=== PATIENT | female | born 1985 | race Hispanic/Latino ===

== ENCOUNTER 2016-11-28 09:59 | Emergency (ER) | payer OTHER ==
[2016-11-28 10:09] VITALS: BP 103/71; PULSE 94; RESP 18; TEMP 98.4; O2SAT 100
--- NOTE | 2016-11-28 10:41 | ED PDOC ---
HPI: Skin/Bite Injury Time Seen by Provider: 11/28/16 10:24 Chief Complaint (Nursing): Abnormal Skin Integrity History Per: Patient Additional Complaint(s): Pt. states for the past week she's had a painful and pruritic rash localized to the back of her L leg. She has been applying Hydrocortisone cream and Calamine lotion without relief. Has also taken benadryl without relief. Further reports that she has been going through a lot of stress the past 1.5 months. Denies fever, recent illness, drainage. Past Medical History Reviewed: Historical Data, Nursing Documentation, Vital Signs Vital Signs: Last Vital Signs Temp 98.4 F 11/28/16 10:08 Pulse 94 H 11/28/16 10:08 Resp 18 11/28/16 10:08 BP 103/71 11/28/16 10:08 Pulse Ox 100 11/28/16 10:08 - Family History Family History: States: No Known Family Hx - Home Medications Home Medications: Ambulatory Orders Medication Instructions Recorded Acyclovir 5% [Zovirax 5% Oint] 1 applic EXT 5XD #1 tube 11/28/16 Acyclovir [Zovirax] 800 mg PO 5XD #35 tab 11/28/16 Hydroxyzine HCl 1 - 2 tab PO Q6 PRN #30 tablet 11/28/16 - Allergies Allergies/Adverse Reactions: Allergies Allergy/AdvReac Type Severity Reaction Status Date / Time No Known Allergies Allergy Verified 11/28/16 10:11 Review of Systems ROS Statement: Except As Marked, All Systems Reviewed And Found Negative Skin: Positive for: Rash Physical Exam - Physical Exam Appears: Positive for: Well, Non-toxic, No Acute Distress Skin: Positive for: Normal Color, Warm, Rash (Scattered vesicles some on erythematous base on entire posterior L leg without any crusting or pustules. ) - ECG O2 Sat by Pulse Oximetry: 100 Disposition - Clinical Impression Clinical Impression: Shingles - Patient ED Disposition Is Patient to be Admitted: No - Disposition Disposition: Routine/Home Disposition Time: 10:42 Condition: STABLE Additional Instructions: Follow up with your primary care physician in 2 days for further evaluation. STOP applying hydrocortisone on rash. Prescriptions: Acyclovir [Zovirax] 800 mg PO 5XD #35 tab Acyclovir 5% [Zovirax 5% Oint] 1 applic EXT 5XD #1 tube Hydroxyzine HCl 1 - 2 tab PO Q6 PRN #30 tablet PRN Reason: Itching / Pruritus Instructions: Gema (ED)
== END 2016-11-28 11:04 | disposition home or self-care (01) ==
LOC: H.ER 09:59
DX: B02.9 Zoster without complications (principal)

== ENCOUNTER 2017-05-04 08:41 | Emergency (ER) | payer BC, OTHER ==
[2017-05-04 08:48] VITALS: BP 98/57; PULSE 73; RESP 18; TEMP 97.8; O2SAT 100; BMI 20.8
--- NOTE | 2017-05-04 10:54 | ED PDOC ---
HPI: Wound Care - HPI Time Seen by Provider: 05/04/17 09:20 Chief Complaint (Nursing): Suture/Staple Removal History Per: Patient Additional Complaint(s): Pt. here for wound check and suture removal on L index finger. Pt. had suture placed on L 2nd digit 7 days ago at [facility] ED. She noticed today that there was some bleeding from the wound. Denies discharge, fever, numbness, tingling. Past Medical History Reviewed: Historical Data, Nursing Documentation, Vital Signs Vital Signs: Last Vital Signs Temp 97.8 F 05/04/17 08:47 Pulse 73 05/04/17 08:47 Resp 18 05/04/17 08:47 BP 98/57 L 05/04/17 08:47 Pulse Ox 100 05/04/17 08:47 - Medical History PMH: Depression - Family History Family History: States: No Known Family Hx - Immunization History Hx Tetanus Toxoid Vaccination: Yes Hx Influenza Vaccination: Yes Hx Pneumococcal Vaccination: No - Home Medications Home Medications: Ambulatory Orders Medication Instructions Recorded DULoxetine [Cymbalta] 60 mg PO DAILY 04/27/17 Methylphenidate HCl [Concerta] 54 mg PO DAILY 04/27/17 - Allergies Allergies/Adverse Reactions: Allergies Allergy/AdvReac Type Severity Reaction Status Date / Time No Known Allergies Allergy Verified 05/04/17 08:53 Review of Systems ROS Statement: Except As Marked, All Systems Reviewed And Found Negative Physical Exam - Physical Exam Appears: Positive for: Well, Non-toxic, No Acute Distress Skin: Positive for: Normal Color, Warm. Negative for: Rash Eye Exam: Positive for: Normal appearance Pulses-Radial (L): 2+ Extremity: Positive for: Other (L 2nd digit with [address] and steri- strip with small portion of wound still not completely approximated; no active bleeding) - ECG O2 Sat by Pulse Oximetry: 100 - Progress ED Course And Treament: Steri-strip removed by PA without difficulty. Wound irrigated and cleansed with NS. Suture kept in place. Pt. instructed to return to ED in 3 days for suture removal. Disposition - Clinical Impression Clinical Impression: Visit for wound check - Patient ED Disposition Is Patient to be Admitted: No - Disposition Disposition: Routine/Home Disposition Time: 10:45 Condition: STABLE Additional Instructions: Suture removal in 3 days Instructions: Care For Your Stitches (ED) Forms: [employer] (Kazakh) Print Language: WALLISIAN
== END 2017-05-04 11:00 | disposition home or self-care (01) ==
LOC: H.ER 08:41
DX: Z48.02 Encounter for removal of sutures (principal); F32.9 Major depressive disorder, single episode, unspecified

== ENCOUNTER 2017-09-26 15:56 | Emergency (ER) | payer BC, OTHER ==
[2017-09-26 15:57] VITALS: BMI 20.8
[2017-09-26 16:01] VITALS: BP 124/91; PULSE 74; RESP 16; TEMP 98; O2SAT 99
[2017-09-26] MEDS ORDERED: MethylPREDNISolone 40 mg Vial ONE (16:36)
[2017-09-26] MEDS ORDERED: MethylPREDNISolone 40 mg Vial IVP STA (16:39)
[2017-09-26] MEDS ORDERED: MethylPREDNISolone 40 mg Vial IM STA (16:40)
--- NOTE | 2017-09-26 17:01 | ED PDOC ---
HPI: Allergic Reaction Time Seen by Provider: 09/26/17 16:03 Chief Complaint (Nursing): Abnormal Skin Integrity Chief Complaint (Provider): Abnormal Skin Integrity History Per: Patient History/Exam Limitations: no limitations Onset/Duration Of Symptoms: Days (x3 weeks) Current Symptoms Are (Timing): Still Present Additional Complaint(s): 32 y/o female ([employer] employee) presents to the ED due to poison [place] exposure x3 weeks. Patient states she is severely allergic to poison [place] and was exposed to it 3 weeks ago in her backyard. States she was seen initially by Dr. Mike Alvarez who started her on a Medrol Dosepak, which she completed with no relief. She says she was then given a 40mg shot of SOLU-Medrol by her PMD at a repeat visit, who told her to return for another shot if her rash did not clear up in a few days. Patient states the rash is still present on her abdomen and legs and she was uncomfortable at work today, prompting ER visit for a solu- medrol shot. Patient denies taking any medication prior to arrival. LMP is . Patient's symptoms are consistent with prior poison marianna episodes in the past. Denies any recent fever, facial swelling, or SOB. PMD: Dr. Mike Alvarez Past Medical History Reviewed: Historical Data, Nursing Documentation, Vital Signs Vital Signs: Last Vital Signs Temp 98 F 09/26/17 15:58 Pulse 74 09/26/17 15:58 Resp 16 09/26/17 15:58 BP 124/91 H 09/26/17 15:58 Pulse Ox 99 09/26/17 15:58 - Medical History PMH: Depression - Surgical History Surgical History: No Surg Hx - Family History Family History: States: Unknown Family Hx - Social History Current smoker - smoking cessation education provided: No Alcohol: Social Drugs: Denies - Immunization History Hx Tetanus Toxoid Vaccination: Yes - Home Medications Home Medications: Ambulatory Orders Medication Instructions Recorded DULoxetine [Cymbalta] 60 mg PO DAILY 04/27/17 Methylphenidate HCl [Concerta] 54 mg PO DAILY 04/27/17 Calamine/Zinc Oxide [Calamine 1 appl TOP BID PRN #1 bottle 09/26/17 Lotion] - Allergies Allergies/Adverse Reactions: Allergies Allergy/AdvReac Type Severity Reaction Status Date / Time No Known Allergies Allergy Verified 05/04/17 08:53 Review of Systems ROS Statement: Except As Marked, All Systems Reviewed And Found Negative Skin: Positive for: Rash (legs and torso) Physical Exam - Reviewed Nursing Documentation Reviewed: Yes Vital Signs Reviewed: Yes - Physical Exam Comments: GENERAL APPEARANCE: Patient is awake, alert, oriented x 3, in no acute distress. SKIN: (+) scattered, non-tender, erythematous lesions to the torso and upper legs, (+) crusting. Otherwise (-) excoriations, (-) active drainage, (-) evidence of cellulitis. HENT: (-) conjunctival injection, (-) chemosis. Oropharynx: clear (-) tongue or lip swelling, (-) tonsillar exudates, (-) erythema. Airway: patent (-) stridor, (-) hoarseness. Mucous membranes moist. Nares: Patent (-) rhinorrhea. Uvula midline. NECK: Supple, FROM (-) lymphadenopathy, (-) tenderness. CARDIOVASCULAR: Normal rate and rhythm. (-) murmur, (-) gallop. CHEST: (-) rales, (-) wheezing, (-) dyspnea, (-) stridor. Breath sounds equal bilaterally. ABDOMEN: Soft. (-) tenderness, (-) distention. NEURO: Mental status: Patient is alert, oriented, and with normal strength and tone. - ECG O2 Sat by Pulse Oximetry: 99 (RA) Pulse Ox Interpretation: Normal Disposition - Clinical Impression Clinical Impression: Poison mar[place] dermatitis - Patient ED Disposition Is Patient to be Admitted: No Counseled Patient/Family Regarding: Studies Performed, Diagnosis, Need For Followup, Rx Given - Disposition Referrals: Mike Alvarez MD [Staff Provider] - Disposition: Routine/Home Disposition Time: 16:53 Condition: STABLE Prescriptions: Calamine/Zinc Oxide [Calamine Lotion] 1 appl TOP BID PRN #1 bottle PRN Reason: Itching / Pruritus Instructions: Poison [place], Contact Dermatitis (DC), Poison [place], Poison [place], Poison [place] (DC) Forms: [employer] (Telugu) Print Language: [place] Medical Decision Making Medical Decision Makin:40 Initial Impression: Poison marianna Plan: --Solu-Medrol 40mg IM --Reevaluation 16:53 Patient remains awake, alert, oriented x 3 and is laying in bed comfortably. On exam, neck is supple, lungs are clear, abdomen is soft and non tender, heart is at regular rate and rhythm. Repeat neuro shows no focal findings. Advised to follow up with primary care physician in 1-2 days without fail. Advised to take medication as prescribed. Return to the emergency room at any time for any new or worsening symptoms. Patient states she fully agrees with and understands discharge instructions. States that she agrees with the plan and disposition. Verbalized and repeated discharge instructions and plan. I have given the patient opportunity to ask any additional questions. Scribe Attestation: Documented by Emile Sarmiento, acting as a scribe for NÉSTOR Pruett. Provider Scribe Attestation: All medical record entries made by the Scribe were at my direction and personally dictated by me. I have reviewed the chart and agree that the record accurately reflects my personal performance of the history, physical exam, medical decision making, and the department course for this patient. I have also personally directed, reviewed, and agree with the discharge instructions and disposition.
== END 2017-09-26 16:54 | disposition home or self-care (01) ==
LOC: H.ER 15:56
DX: L23.7 Allergic contact dermatitis due to plants, except food (principal); F32.9 Major depressive disorder, single episode, unspecified
CPT/HCPCS: 96372; 99282; J2920

== ENCOUNTER 2018-02-27 08:50 | Emergency (ER) | payer OTHER | END 2018-02-27 10:15 | disposition home or self-care (01) | LOC: H.EDDOWN 08:50 | DX: N12 Tubulo-interstitial nephritis, not specified as acute or chronic (principal); N13.30 Unspecified hydronephrosis ==

== ENCOUNTER 2018-07-14 09:25 | Emergency (ER) | payer OTHER ==
[2018-07-14 09:25] VITALS: BMI 20.8
[2018-07-14 09:51] VITALS: RESP 18; TEMP 98.5
[2018-07-14] MEDS ORDERED: Sodium Chloride 0.9% 1,000 ML IV ONE (10:39)
--- NOTE | 2018-07-14 10:54 | ED PDOC ---
HPI: Influenza Time Seen by Provider: 07/14/18 10:07 Chief Complaint: GI Problem Chief Complaint (Provider): Flu Like Syndrome History Per: Patient Exam Limitations: no limitations Have you had recent travel within the past 21 days to any of: No Onset/Duration Of Symptoms: Days (two) Symptoms include: fever, headache, bodyaches, nasal congestion, vomiting. denies: sore throat, cough Sick Contacts (Context): Individual(s) At Work (Pt presents to the ED complaining of influenza like symptoms for the last two days that have incuded fever, chills, bodyaches, headache and nausea. 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 in the last week; pt is afebrile on presenation) Past Medical History Reviewed: Historical Data, Nursing Documentation, Vital Signs Vital Signs: Last Vital Signs Temp 98.5 F 07/14/18 09:48 Pulse 63 07/14/18 09:48 Resp 18 07/14/18 09:48 BP 101/63 07/14/18 09:48 Pulse Ox 100 07/14/18 09:48 - Medical History PMH: Depression - Family History Family History: States: Unknown Family Hx - Immunization History Hx Tetanus Toxoid Vaccination: Yes Hx Influenza Vaccination: Yes Hx Pneumococcal Vaccination: No - Home Medications Home Medications: Ambulatory Orders Medication Instructions Recorded DULoxetine [Cymbalta] 60 mg PO DAILY 04/27/17 Methylphenidate HCl [Concerta] 54 mg PO DAILY 04/27/17 Calamine/Zinc Oxide [Calamine 1 appl TOP BID PRN #1 bottle 09/26/17 Lotion] Ondansetron ODT [Zofran ODT] 4 mg PO PRN PRN #8 odt 07/14/18 Oseltamivir Phosphate [Tamiflu] 75 mg PO BID #10 capsule 07/14/18 - Allergies Allergies/Adverse Reactions: Allergies Allergy/AdvReac Type Severity Reaction Status Date / Time No Known Allergies Allergy Verified 05/04/17 08:53 Review of Systems ROS Statement: Except As Marked, All Systems Reviewed And Found Negative Constitutional: Positive for: Fever, Chills ENT: Positive for: Nose Discharge, Nose Congestion. Negative for: Mouth Swelling, Throat Pain, Throat Swelling Cardiovascular: Positive for: Light Headedness Respiratory: Positive for: Cough Gastrointestinal: Positive for: Nausea, Vomiting Physical Exam - Reviewed Nursing Documentation Reviewed: Yes Vital Signs Reviewed: Yes - Physical Exam Appears: Positive for: Well, Non-toxic, No Acute Distress. Negative for: Uncomfortable Head Exam: Positive for: ATRAUMATIC, NORMAL INSPECTION Skin: Positive for: Normal Color, Warm, Dry. Negative for: Diaphoresis, Pallor, Rash Eye Exam: Positive for: Normal appearance, EOMI, PERRL. Negative for: Nystagmus, Periorbital swelling, Periorbital tenderness ENT: Positive for: Normal ENT Inspection (ENMT: TMs: (-) erythema, (-) injection; all landmarks are visible bilaterally and there is a (+) light reflection bilaterally. Pharynx: (-) Bilateral tonsillar erythema and (-) pharyngeal erythema; (-) exudate. (-) deviation of uvula (-) tongue elevation (-) jaw or neck swelling (-) pain upon palpation of the cricoid. Airway widely patent: (-) stridor, (-) hoarseness, (-) drooling (-) trismus. ) Neck: Positive for: Normal, Painless ROM, Supple. Negative for: Decreased ROM Cardiovascular/Chest: Positive for: Regular Rate, Rhythm Respiratory: Positive for: Normal Breath Sounds. Negative for: Crackles, Rales, Rhonchi, Stridor, Wheezing, Respiratory Distress Pulses-Carotid (L): 2+ Pulses-Carotid (R): 2+ Pulses-Radial (L): 2+ Pulses-Radial (R): 2+ Gastrointestinal/Abdominal: Positive for: Normal Exam Medical Decision Making Medical Decision Making: R/o influenza Fluids Zofran APAP - Laboratory Results Urine POC: Negative Urine dip results: Negative for: Leukocyte Esterase, Blood, Nitrate, Ketones, Glucose, Bilirubin, Protein - ECG O2 Sat by Pulse Oximetry: 100 Disposition - Clinical Impression Clinical Impression: Influenza-like symptoms Doctor Will See Patient In The: Office Counseled Patient/Family Regarding: Studies Performed, Diagnosis, Need For Followup, Rx Given - Disposition Referrals: Mike Alvarez MD [Staff Provider] - Disposition: Routine/Home Disposition Time: 13:00 Condition: FAIR Prescriptions: Ondansetron ODT [Zofran ODT] 4 mg PO PRN PRN #8 odt PRN Reason: Nausea/Vomiting Oseltamivir Phosphate [Tamiflu] 75 mg PO BID #10 capsule Instructions: Flu, Adult (DC), Flu Forms: [employer] (Czech), [facility] ED School/Work Excuse
[2018-07-14 13:06] LABS: SQUAMOUS EPITHIAL 4 /hpf (0-5); URINE BACTERIA RARE (<OCC); URINE BILIRUBIN NEGATIVE (NEGATIVE); URINE BLOOD NEGATIVE (NEGATIVE); URINE CLARITY SLIGHTY-CLOUDY (Clear); URINE GLUCOSE (UA) NEG (NEGATIVE); URINE LEUKOCYTE ESTERASE SMALL Leu/uL (Negative); URINE PROTEIN 30 mg/dL (NEGATIVE)
[2018-07-14 13:13] VITALS: BP 104/70; PULSE 72; O2SAT 99
[2018-07-14 13:20] LABS: URINE COLOR YELLOW (YELLOW)
== END 2018-07-14 13:09 | disposition home or self-care (01) ==
LOC: H.ER 09:25
DX: J11.1 Influenza due to unidentified influenza virus with other respiratory manifestations (principal); F32.9 Major depressive disorder, single episode, unspecified
CPT/HCPCS: 81003; 81025; 87804; 99284; J7030